=== PATIENT | male | born 1940 | race Two or more races ===

== ENCOUNTER 2017-10-26 07:24 | Day surgery (SDC) | payer MEDICARE, MEDICAID ==
[~2017-10-26 07:24] MED LIST: Buffered Lidocaine 0.9% SYRIN* 5 ML/SYR SYRINGE INTRADERM ONE; Famotidine TAB* 20 MG PO ONE; Metoclopramide TAB* 10 MG PO ONE
[2017-10-26] MEDS ORDERED: Famotidine TAB* 20 MG ONE ×2 (07:32→08:21)
[2017-10-26] MEDS ORDERED: ceFAZolin 2 GM PREMIX (*) 2 GM/50 ML BAG IVPB ONE (07:33)
[2017-10-26] MEDS ORDERED: Metoclopramide TAB* 10 MG ONE (07:33)
[2017-10-26] MEDS ORDERED: Buffered Lidocaine 0.9% SYRIN* 5 ML/SYR SYRINGE ONE (08:21)
[2017-10-26] MEDS ORDERED: Lidocaine 2% PF * 5 ML VIAL ONE (08:53)
[2017-10-26] MEDS ORDERED: Ketorolac INJ* 30 MG/ML 1 ML VIAL ONE (08:53)
[2017-10-26] MEDS ORDERED: fentaNYL* 50 MCG/ML 2 ML VIAL (100 MCG VIAL) ONE (08:53)
[2017-10-26] MEDS ORDERED: Midazolam* 1 MG/ML 5 ML VIAL (5 MG) ONE (08:53)
[2017-10-26] MEDS ORDERED: Dexamethasone IV* 4 MG/ML 1 ML (4 MG) ONE (08:53)
[2017-10-26] MEDS ORDERED: Propofol* 10 MG/ML 20 ML BTL IV PUSH ONE (08:53)
[2017-10-26] MEDS ORDERED: Ondansetron INJ* 2 MG/ML VIAL ONE (08:53)
[2017-10-26] MEDS ORDERED: HYDROmorphone INJ* 1 MG/ML CARPUJECT SYRINGE ONE (09:03)
[2017-10-26] MEDS ORDERED: Bupivacaine 0.5%* 50 ML VIAL ONE (09:50)
[2017-10-26] MEDS ORDERED: Lidocaine 2% PF* 10 ML AMP ONE (10:10)
[2017-10-26] MEDS ORDERED: EPHEDrine (Pressors)* 50 MG/ML VIAL ONE (10:27)
[2017-10-26] MEDS ORDERED: fentaNYL* 50 MCG/ML 2 ML VIAL (100 MCG VIAL) IV PRN (10:32)
[2017-10-26] MEDS ORDERED: Ondansetron INJ* 2 MG/ML VIAL IV PRN (10:32)
[2017-10-26] MEDS ORDERED: Naloxone* 0.4 MG/ML 1 ML VIAL IV PRN (10:32)
[2017-10-26 11:46] VITALS: BP 156/97
--- NOTE | 2017-10-27 02:31 | OP ---
DATE OF OPERATION: 10/26/17 - [facility] DATE OF : 44 SURGEON: John Bran MD ACCOUNT LIAISON: Daphnie Fall PA-C. PRE-OP DIAGNOSIS: Plantar ulcer with Charcot midfoot. POST-OP DIAGNOSIS: Plantar ulcer with Charcot midfoot. OPERATIVE PROCEDURE: Left midfoot ostectomy. DESCRIPTION OF PROCEDURE: The patient was taken to the operating room where a longitudinal incision was made along the lateral mid border of the left foot. We dissected subperiosteally over to the very prominent aspect of the underside of the cuboid, which was removed with a half-inch curved osteotome. Care was taken to completely decompress this area with the curette, rongeur, and osteotome. Thorough irrigation was then performed. We closed the lateral wound with 2-0 Vicryl sutures and Prolene for the skin. Cultures were sent intraoperatively. The small plantar ulcer was debrided with a 15 blade and then Betadine dressing was applied. We then at the end of the case wrapped the foot with compression and a plaster splint. [id number]/[facility] #: [id number] [facility]
== END 2017-10-26 12:14 | disposition home or self-care (01) ==
LOC: OR 07:24
PROVIDERS: ATTEND Orthopaedic Surgery
DX: M14.672 Charcot's joint, left ankle and foot (principal); E11.40 Type 2 diabetes mellitus with diabetic neuropathy, unspecified; Z79.84 Long term (current) use of oral hypoglycemic drugs; L98.491 Non-pressure chronic ulcer of skin of other sites limited to breakdown of skin; I10 Essential (primary) hypertension; E78.5 Hyperlipidemia, unspecified; F17.210 Nicotine dependence, cigarettes, uncomplicated; R80.9 Proteinuria, unspecified
CPT/HCPCS: 87070; 87073; 87205; 88304; 88311; A9270-GY; J0690; J1100; J1170; J1885; J2001; J2250; J2405; J2704; J3010